=== PATIENT | male | born 1990 | race American Indian/Alaskan Native ===

== ENCOUNTER 2020-01-24 01:15 | Emergency (ER) | payer SELFPAY ==
[2020-01-24 01:29] VITALS: BP 121/79
--- NOTE | 2020-01-24 05:33 | Emergency Department Report ---
ED ENT HPI - General Chief complaint: Weakness Stated complaint: GENERAL WEAKNESS Time Seen by Provider: 01/24/20 05:28 Source: patient Mode of arrival: Ambulatory Limitations: No Limitations - History of Present Illness Initial comments: Patient is a 29-year-old -[place] male who presents for dental pain and sinus congestion , states to bad lower wisdom teeth. Pain is described as 6/10 aching throbbing. There is no throat or ear pain. There is noted rhinorrhea that is clear, there is no fever or chills, there is no nausea ,vomiting. There is no chest pain. Patient denies generalized weakness states symptoms are exacerbated by, activity, and p.o. intake with hot and cold sensitivity. , complaint: tooth pain Onset/Timin -: days(s) Location: tooth # (17&32) Severity: moderate Severity scale (0 -10): 5 Quality: aching Consistency: constant Improves with: none Worsens with: eating Context- Dental: history of dental caries, poor dental care Associated Symptoms: gum swelling, toothache, rhinorrhea. denies: pain with swallowing, sore throat, discharge from ear - Related Data Previous Rx's Medication Instructions Recorded Last Taken Type Amoxicillin [Trimox CAP] 500 mg PO Q8H 7 Days #21 capsule 01/24/20 Unknown Rx Chlorhexidine Mouthwash [Peridex] 15 ml MM BID #1 bottle 01/24/20 Unknown Rx traMADoL [Ultram] 50 mg PO Q6HR PRN #12 tablet 01/24/20 Unknown Rx ED Dental HPI - General Chief complaint: Weakness Stated complaint: GENERAL WEAKNESS Time Seen by Provider: 01/24/20 05:28 Source: patient Mode of arrival: Ambulatory Limitations: No Limitations - History of Present Illness MD complaint: tooth pain - Related Data Previous Rx's Medication Instructions Recorded Last Taken Type Amoxicillin [Trimox CAP] 500 mg PO Q8H 7 Days #21 capsule 01/24/20 Unknown Rx Chlorhexidine Mouthwash [Peridex] 15 ml MM BID #1 bottle 01/24/20 Unknown Rx traMADoL [Ultram] 50 mg PO Q6HR PRN #12 tablet 01/24/20 Unknown Rx ED Review of Systems ROS: Stated complaint: GENERAL WEAKNESS Other details as noted in HPI Constitutional: denies: chills, fever Eyes: denies: eye pain, eye discharge, vision change ENT: dental pain Respiratory: denies: cough, shortness of breath, wheezing Cardiovascular: denies: chest pain, palpitations Endocrine: no symptoms reported Gastrointestinal: denies: abdominal pain, nausea, diarrhea Genitourinary: denies: urgency, dysuria Musculoskeletal: denies: back pain, joint swelling, arthralgia Skin: denies: rash, lesions Neurological: denies: headache, weakness, paresthesias Psychiatric: denies: anxiety, depression Hematological/Lymphatic: denies: easy bleeding, easy bruising ED Past Medical Hx - Past Medical History Previous Medical History?: No - Surgical History Past Surgical History?: No - Social History Smoking Status: Former Smoker Substance Use Type: Alcohol - Medications Home Medications: Home Medications Medication Instructions Recorded Confirmed Last Taken Type Amoxicillin [Trimox CAP] 500 mg PO Q8H 7 Days #21 capsule 01/24/20 Unknown Rx Chlorhexidine Mouthwash [Peridex] 15 ml MM BID #1 bottle 01/24/20 Unknown Rx traMADoL [Ultram] 50 mg PO Q6HR PRN #12 tablet 01/24/20 Unknown Rx ED Physical Exam - General Limitations: No Limitations General appearance: alert, in no apparent distress - Head Head exam: Present: atraumatic, normocephalic - Eye Eye exam: Present: normal appearance, PERRL, EOMI Pupils: Present: normal accommodation - ENT ENT exam: Present: normal exam, mucous membranes moist, TM's normal bilaterally, normal external ear exam - Expanded ENT Exam Expanded Ear exam: Present: normal external inspection Mouth exam: Absent: trismus Teeth exam: Present: dental caries, dental tenderness # (17&32). Absent: gingival enlargement 1 - Dental Tenderness 2 - Dental Tenderness Throat exam: Positive: normal inspection. Negative: tonsillar erythema, tonsillomegaly, tonsillar exudate, R peritonsillar mass, L peritonsillar mass - Neck Neck exam: Present: normal inspection, full ROM. Absent: tenderness - Respiratory Respiratory exam: Present: normal lung sounds bilaterally. Absent: respiratory distress, wheezes, stridor, chest wall tenderness - Cardiovascular Cardiovascular Exam: Present: regular rate, normal rhythm, normal heart sounds. Absent: systolic murmur, diastolic murmur, rubs, gallop - GI/Abdominal GI/Abdominal exam: Present: soft, normal bowel sounds. Absent: distended, tenderness, bruit, hernia - Rectal Rectal exam: Present: deferred - Extremities Exam Extremities exam: Present: normal inspection, full ROM, normal capillary refill. Absent: tenderness - Back Exam Back exam: Present: normal inspection, full ROM. Absent: tenderness, CVA tenderness (R), CVA tenderness (L) - Neurological Exam Neurological exam: Present: alert, oriented X3, CN II-XII intact, normal gait - Psychiatric Psychiatric exam: Present: normal affect, normal mood - Skin Skin exam: Present: warm, dry, intact, normal color. Absent: rash ED Course Vital Signs 01/24/20 01:25 Temperature 98.4 F Pulse Rate 72 Respiratory 16 Rate Blood Pressure 121/79 O2 Sat by Pulse 99 Oximetry ED Medical Decision Making - Medical Decision Making This is straightforward dental caries there is no focal abscess mild gum e rythema, there is no trismus no ear pain, no sore throat. Patient is tolerating p.o. intake, plan antibiotics, Peridex, NSAIDs, follow-up with dentist, patient verbalized agreement and understanding with same. will be DC'd home in stable condition at this time. Critical care attestation.: If time is entered above; I have spent that time in minutes in the direct care of this critically ill patient, excluding procedure time. ED Disposition Clinical Impression: Infected dental carries Disposition: DC-01 TO HOME OR SELFCARE Is pt being admited?: No Does the pt Need Aspirin: No Condition: Stable Instructions: Dental Caries (ED) Prescriptions: Chlorhexidine Mouthwash [Peridex] 15 ml MM BID #1 bottle Amoxicillin [Trimox CAP] 500 mg PO Q8H 7 Days #21 capsule traMADoL [Ultram] 50 mg PO Q6HR PRN #12 tablet PRN Reason: Pain Referrals: SHAHRZAD CAMEJO MD [Primary Care Provider] - 3-5 Days [facility] [place] [Outside] - 3-5 Days Forms: Work/School Release Form(ED) Time of Disposition: 05:49
== END 2020-01-24 05:55 | disposition home or self-care (01) ==
LOC: ED 01:15
DX: K02.9 Dental caries, unspecified (principal)

== ENCOUNTER 2020-03-03 07:30 | Emergency (ER) | payer SELFPAY ==
[2020-03-03 07:35] VITALS: BP 144/81
--- NOTE | 2020-03-03 09:57 | Emergency Department Report ---
Chief Complaint: Dental/Oral Stated Complaint: TOOTH PAIN/RASH ON ARMS Time Seen by Provider: 03/03/20 09:33 - HPI History of Present Illness: Is a 29-year-old male with no prior medical history presents the ED today complaining of eczematous rash to his arm x1 week. Patient states that is not resolving. Patient also complaining of dental pain on the left lower bottom part of his teeth stating that he thinks is infection. He denies fever/chills/nausea vomiting/chest pain or shortness of breath. - ROS Review of Systems: As noted in HPI - Exam Vital Signs: Vital Signs 03/03/20 07:32 Temperature 98.6 F Pulse Rate 93 H Respiratory 17 Rate Blood Pressure 144/81 O2 Sat by Pulse 100 Oximetry Physical Exam: GENERAL: Alert and oriented x3, no apparent distress, Normal Gait, atraumatic. HEAD: Head is normocephalic and a-traumatic. EARS: symetrical, atraumatic, non tender, ear canal clear and moderate cerumen, tympanic membrance non inflamed. gross auditory nml bilaterally. MOUTH:Mouth is well hydrated and without lesions. Tonsils nonerythematous or swollen, Uvula midline, Tongue not elevated. Mucous membranes are moist. Pos terior pharynx clear, no exudate or lesions. Patent airways. No gingival edema or gingival bleeding noted. SKIN: Warm and dry, No ulceration or induration present. Multiple dry pinpoint rash noted on arms MSE screening note: Focused history and physical exam performed. Due to findings the following was ordered: ED Medical Decision Making - Medical Decision Making 29-year-old male who presents with left-sided dental pain secondary to odontogenic caries Pt has no evidence of acute impending airway compromise. At this point, patient will be discharged home on some antibiotics and pain trial, she will do well with an outpatient course of antibiotics. Follow up with the Dental Clinic as referred Vital signs are normal patient is in no acute distress. Pt had an effect uneventful ED stay ED Disposition for MSE Clinical Impression: Pain due to dental caries, Eczematous dermatitis Disposition: TO HOME OR SELFCARE Is pt being admited?: No Does the pt Need Aspirin: No Condition: Stable Instructions: Toothache (ED), Dental Caries (ED), Eczema (ED) Additional Instructions: Make sure to follow up with the primary care physician as discussed. Take all your medications as you've been prescribed. If you have any worsening symptoms or develop new symptoms please return to ED immediately. Prescriptions: Amoxicillin [Amoxicillin TAB] 875 mg PO BID #20 tablet Triamcinolone 0.1% [Kenalog 0.1% CREAM] 1 applic TP TID #2 tube Referrals: [facility] [Outside] - 3-5 Days [facility] [Outside] - 3-5 Days [facility] [Outside] - 3-5 Days Forms: Work/School Release Form(ED) Time of Disposition: 10:15
== END 2020-03-03 10:52 | disposition home or self-care (01) ==
LOC: ED 07:30
DX: K02.9 Dental caries, unspecified (principal); L30.9 Dermatitis, unspecified
CPT/HCPCS: 99282

== ENCOUNTER 2020-04-13 06:27 | Emergency (ER) | payer SELFPAY ==
--- NOTE | 2020-04-13 10:30 | Emergency Department Report ---
HPI - General Chief Complaint: Dental/Oral Time Seen by Provider: 04/13/20 10:25 - HPI HPI: Manjinder Banks The patient is a 30-year-old male present with a chief complaint of wisdom tooth pain. The patient states for the past 2 to 3 months he has had pain in his bilateral lower wisdom teeth. Patient states he went to see a dentist however cannot afford the [id number] cost. The patient states over the last week the pain is worsened. Patient denies history of fever. ED Past Medical Hx - Past Medical History Previous Medical History?: No - Surgical History Past Surgical History?: No - Family History Family history: no significant - Social History Smoking Status: Never Smoker Substance Use Type: None (Denies illicit drug use), Alcohol (Occasional) - Medications Home Medications: Home Medications Medication Instructions Recorded Confirmed Last Taken Type Amoxicillin [Trimox CAP] 500 mg PO Q8H 7 Days #21 capsule 01/24/20 Unknown Rx Chlorhexidine Mouthwash [Peridex] 15 ml MM BID #1 bottle 01/24/20 Unknown Rx traMADoL [Ultram] 50 mg PO Q6HR PRN #12 tablet 01/24/20 Unknown Rx Amoxicillin [Amoxicillin TAB] 875 mg PO BID #20 tablet 03/03/20 Unknown Rx Triamcinolone 0.1% [Kenalog 0.1% 1 applic TP TID #2 tube 03/03/20 Unknown Rx CREAM] Amoxicillin [Amoxicillin TAB] 875 mg PO BID #20 tablet 04/13/20 Unknown Rx Ibuprofen [Motrin 800 MG tab] 800 mg PO Q8HR PRN #20 tablet 04/13/20 Unknown Rx traMADoL [Ultram] 50 mg PO Q6HR PRN #14 tablet 04/13/20 Unknown Rx ED Review of Systems ROS: Stated complaint: TOOTH PAIN Other details as noted in HPI Constitutional: denies: fever ENT: dental pain Physical Exam - Physical Exam Physical Exam: GENERAL: The patient is well-developed well-nourished male sitting on stretcher not appearing to be in acute distress. [] HEENT: Normocephalic. Atraumatic. Extraocular motions are intact. Patient has moist mucous membranes. Lower right wisdom tooth black with caries. No gingival erythema or swelling appreciated. NECK: Supple. Trachea midline CHEST/LUNGS: There is no respiratory distress noted. SKIN: There is no diaphoresis. NEURO: The patient is awake, alert, and oriented. The patient is cooperative. The patient has normal speech MUSCULOSKELETAL: There is no evidence of acute injury. ED Medical Decision Making - Differential Diagnosis Dental pain, dental caries Critical care attestation.: If time is entered above; I have spent that time in minutes in the direct care of this critically ill patient, excluding procedure time. ED Disposition Clinical Impression: Pain, dental, Dental caries Disposition: TO HOME OR SELFCARE Is pt being admited?: No Does the pt Need Aspirin: No Condition: Stable Instructions: Dental Caries (ED), Toothache (ED) Additional Instructions: Return to the emergency department should you develop worsening symptoms, inability to tolerate food or liquids, high fever or any other concerns Prescriptions: Amoxicillin [Amoxicillin TAB] 875 mg PO BID #20 tablet Ibuprofen [Motrin 800 MG tab] 800 mg PO Q8HR PRN #20 tablet PRN Reason: Pain, Moderate (4-6) traMADoL [Ultram] 50 mg PO Q6HR PRN #14 tablet PRN Reason: Pain Referrals: PRIMARY CARE, [Primary Care Provider] - 3-5 Days [facility] [Outside] - [place] Time of Disposition: 10:30
== END 2020-04-13 10:38 | disposition home or self-care (01) ==
LOC: ED 06:27
DX: K02.9 Dental caries, unspecified (principal); Z79.2 Long term (current) use of antibiotics; Z79.899 Other long term (current) drug therapy
CPT/HCPCS: 99282

== ENCOUNTER 2020-10-11 01:53 | Emergency (ER) | payer SELFPAY ==
--- NOTE | 2020-10-11 03:42 | Emergency Department Report ---
ED Back Pain/Injury HPI - General Chief Complaint: Abdominal Pain Stated Complaint: LOWER BACK PAIN Time Seen by Provider: 10/11/20 03:37 Source: patient Limitations: No Limitations - History of Present Illness Initial Comments: 30-year-old -[place] male presents to the emergency room complaining of right side flank pain intermittently for the last 3 to 4 days. Patient states his pain when he has a BM. Patient states he does suffer from constipation and is having small Isaías hard stool. Patient denies any dysuria or discomfort with urination. Patient states that the pain is sharp and intermittent. He took ibuprofen last dose was yesterday. Denies any past medical history currently takes no medications on a daily basis and had a testicular torsion with surgery 4 years ago. Patient reports his discomfort is 8 out of 10. MD Complaint: back pain - Related Data Previous Rx's Medication Instructions Recorded Last Taken Type Amoxicillin [Trimox CAP] 500 mg PO Q8H 7 Days #21 capsule 01/24/20 Unknown Rx Chlorhexidine Mouthwash [Peridex] 15 ml MM BID #1 bottle 01/24/20 Unknown Rx traMADoL [Ultram] 50 mg PO Q6HR PRN #12 tablet 01/24/20 Unknown Rx Amoxicillin [Amoxicillin TAB] 875 mg PO BID #20 tablet 03/03/20 Unknown Rx Triamcinolone 0.1% [Kenalog 0.1% 1 applic TP TID #2 tube 03/03/20 Unknown Rx CREAM] Amoxicillin [Amoxicillin TAB] 875 mg PO BID #20 tablet 04/13/20 Unknown Rx Ibuprofen [Motrin 800 MG tab] 800 mg PO Q8HR PRN #20 tablet 04/13/20 Unknown Rx traMADoL [Ultram] 50 mg PO Q6HR PRN #14 tablet 04/13/20 Unknown Rx Allergies Allergy/AdvReac Type Severity Reaction Status Date / Time No Known Allergies Allergy Unverified 04/13/20 06:35 ED Review of Systems ROS: Stated complaint: LOWER BACK PAIN Other details as noted in HPI Comment: All other systems reviewed and negative ED Past Medical Hx - Past Medical History Previous Medical History?: No - Surgical History Past Surgical History?: Yes Additional Surgical History: Testicle surgery - Social History Smoking Status: Never Smoker - Medications Home Medications: Home Medications Medication Instructions Recorded Confirmed Last Taken Type Amoxicillin [Trimox CAP] 500 mg PO Q8H 7 Days #21 capsule 01/24/20 Unknown Rx Chlorhexidine Mouthwash [Peridex] 15 ml MM BID #1 bottle 01/24/20 Unknown Rx traMADoL [Ultram] 50 mg PO Q6HR PRN #12 tablet 01/24/20 Unknown Rx Amoxicillin [Amoxicillin TAB] 875 mg PO BID #20 tablet 03/03/20 Unknown Rx Triamcinolone 0.1% [Kenalog 0.1% 1 applic TP TID #2 tube 03/03/20 Unknown Rx CREAM] Amoxicillin [Amoxicillin TAB] 875 mg PO BID #20 tablet 04/13/20 Unknown Rx Ibuprofen [Motrin 800 MG tab] 800 mg PO Q8HR PRN #20 tablet 04/13/20 Unknown Rx traMADoL [Ultram] 50 mg PO Q6HR PRN #14 tablet 04/13/20 Unknown Rx ED Physical Exam - General Limitations: No Limitations General appearance: alert, in no apparent distress - Head Head exam: Present: atraumatic, normocephalic - Eye Eye exam: Present: normal appearance - ENT ENT exam: Present: mucous membranes moist - Neck Neck exam: Present: normal inspection, full ROM - Respiratory Respiratory exam: Present: normal lung sounds bilaterally. Absent: respiratory distress - Cardiovascular Cardiovascular Exam: Present: regular rate, normal rhythm. Absent: systolic murmur, diastolic murmur, rubs, gallop - GI/Abdominal GI/Abdominal exam: Present: soft. Absent: distended, tenderness, guarding - Back Exam Back exam: Present: normal inspection, full ROM. Absent: CVA tenderness (R), CVA tenderness (L), muscle spasm, paraspinal tenderness, vertebral tenderness - Neurological Exam Neurological exam: Present: alert, oriented X3, normal gait - Psychiatric Psychiatric exam: Present: normal affect, normal mood - Skin Skin exam: Present: warm, dry, intact, normal color. Absent: rash ED Course Vital Signs 10/11/20 03:19 Temperature 98.9 F Pulse Rate 67 Respiratory 20 Rate Blood Pressure 144/81 O2 Sat by Pulse 100 Oximetry ED Medical Decision Making - Medical Decision Making 30-year-old -[place] male presents to the emergency room complaining of right side flank pain intermittently for the last 3 to 4 days. Patient states his pain when he has a BM. Patient states he does suffer from constipation and is having small Isaías hard stool. Patient denies any dysuria or discomfort with urination. Patient states that the pain is sharp and intermittent. He took ibuprofen last dose was yesterday. Denies any past medical history currently takes no medications on a daily basis and had a testicular torsion with surgery 4 years ago. Patient reports his discomfort is 8 out of 10. Urinalysis is negative for any infection or hematuria. KUB is negative for any abnormalities. Critical care attestation.: If time is entered above; I have spent that time in minutes in the direct care of this critically ill patient, excluding procedure time. ED Disposition Clinical Impression: Flank pain Disposition: DC-01 TO HOME OR SELFCARE Is pt being admited?: No Does the pt Need Aspirin: No Condition: Stable Instructions: Flank Pain, Adult, [id number] Additional Instructions: X-ray neg urine negative. Recommend otc colace. increase fluid intake. Referrals: PRIMARY CAREMD [Primary Care Provider] - 3-5 Days [facility] [Provider Group] - 3-5 Days Forms: Work/School Release Form(ED)
--- NOTE | 2020-10-11 04:18 | XRay Report ---
. XR abdomen 1V ap INDICATION / CLINICAL INFORMATION: back pain and constipation. COMPARISON: None available. FINDINGS: TUBES / LINES: None. BOWEL GAS PATTERN: Nonobstructive bowel gas pattern. FREE AIR / EXTRALUMINAL GAS: None seen. ADDITIONAL FINDINGS: No significant additional findings. IMPRESSION: 1. No significant abnormality. Signer Name: Cb Diop MD Signed: 10/11/2020 4:14 AM Workstation Name: [id number]
[2020-10-11 04:45] LABS: Bilirubin,Urine NEG (Negative); Blood,Urine NEG (Negative); Color,Urine Yellow (Yellow); Mucus,Urine FEW /HPF; Protein,Urine <15 mg/dL mg/dL (Negative); Urobilinogen,Urine < 2.0 mg/dL (<2.0)
[2020-10-11 07:22] VITALS: BP 132/72
== END 2020-10-11 06:25 | disposition home or self-care (01) ==
LOC: ED 01:53
DX: R10.9 Unspecified abdominal pain (principal); Z79.899 Other long term (current) drug therapy; Z98.890 Other specified postprocedural states
CPT/HCPCS: 74018; 81001; 99283

== ENCOUNTER 2020-10-17 07:10 | Emergency (ER) | payer SELFPAY ==
[2020-10-17 07:29] VITALS: BP 149/89
[2020-10-17] MEDS ORDERED: ACETAMINOPHEN 500 MG TAB PO ONE (08:28)
[2020-10-17] MEDS ORDERED: PENICILLIN V POTASSIUM 250 MG TAB PO NR (08:28)
[2020-10-17] MEDS ORDERED: NAPROXEN 500 MG TAB PO NR (08:28)
--- NOTE | 2020-10-17 08:35 | Emergency Department Report ---
ED General Adult HPI - General Chief complaint: Dental/Oral Stated complaint: BROKEN TOOTH/TOOTHACHE Time Seen by Provider: 10/17/20 08:00 Source: patient Mode of arrival: Ambulatory Limitations: No Limitations - History of Present Illness Initial comments: 30-year-old immunocompetent male patient presents emergency department with complaints of a broken wisdom tooth on his left lower jaw occurring yesterday. Patient states pain is worse with eating, drinking, talking, and swallowing. He is not currently on antibiotics. He is not currently scheduled follow-up with oral surgery or dentist. No medications prior to arrival. Denies fever, chills, neck pain, sore throat, shortness of breath, hoarseness, headache, mental status changes, purulent drainage. Denies other complaints at this time. - Related Data Previous Rx's Medication Instructions Recorded Last Taken Type Amoxicillin [Trimox CAP] 500 mg PO Q8H 7 Days #21 capsule 01/24/20 Unknown Rx Chlorhexidine Mouthwash [Peridex] 15 ml MM BID #1 bottle 01/24/20 Unknown Rx traMADoL [Ultram] 50 mg PO Q6HR PRN #12 tablet 01/24/20 Unknown Rx Amoxicillin [Amoxicillin TAB] 875 mg PO BID #20 tablet 03/03/20 Unknown Rx Triamcinolone 0.1% [Kenalog 0.1% 1 applic TP TID #2 tube 03/03/20 Unknown Rx CREAM] Amoxicillin [Amoxicillin TAB] 875 mg PO BID #20 tablet 04/13/20 Unknown Rx Ibuprofen [Motrin 800 MG tab] 800 mg PO Q8HR PRN #20 tablet 04/13/20 Unknown Rx traMADoL [Ultram] 50 mg PO Q6HR PRN #14 tablet 04/13/20 Unknown Rx Naproxen 500 mg PO BID #20 tablet 10/17/20 Unknown Rx Nystas/Diphen/Xyl Visc/Mylanta 30 ml MM Q4H PRN #1 bottle 10/17/20 Unknown Rx [Magic Mouthwash] Penicillin Vk [Veetids TAB] 500 mg PO QID 7 Days tablet 10/17/20 Unknown Rx Allergies Allergy/AdvReac Type Severity Reaction Status Date / Time No Known Allergies Allergy Verified 10/17/20 07:26 ED Review of Systems ROS: Stated complaint: BROKEN TOOTH/TOOTHACHE Other details as noted in HPI Other: GENERAL: Negative for fever. ENT: Positive for dental pain. CARDIOVASCULAR: Negative for chest pain. PULMONARY: Negative for shortness of breath. GASTROINTESTINAL: Negative for abdominal pain. MUSCULOSKELETAL: Negative for back pain. NEUROLOGICAL: Negative for headache. INTEGUMENTARY: Negative for rash. ED Past Medical Hx - Past Medical History Previous Medical History?: No - Surgical History Past Surgical History?: No Additional Surgical History: Testicle surgery - Social History Smoking Status: Never Smoker Substance Use Type: None - Medications Home Medications: Home Medications Medication Instructions Recorded Confirmed Last Taken Type Amoxicillin [Trimox CAP] 500 mg PO Q8H 7 Days #21 capsule 01/24/20 Unknown Rx Chlorhexidine Mouthwash [Peridex] 15 ml MM BID #1 bottle 01/24/20 Unknown Rx traMADoL [Ultram] 50 mg PO Q6HR PRN #12 tablet 01/24/20 Unknown Rx Amoxicillin [Amoxicillin TAB] 875 mg PO BID #20 tablet 03/03/20 Unknown Rx Triamcinolone 0.1% [Kenalog 0.1% 1 applic TP TID #2 tube 03/03/20 Unknown Rx CREAM] Amoxicillin [Amoxicillin TAB] 875 mg PO BID #20 tablet 04/13/20 Unknown Rx Ibuprofen [Motrin 800 MG tab] 800 mg PO Q8HR PRN #20 tablet 04/13/20 Unknown Rx traMADoL [Ultram] 50 mg PO Q6HR PRN #14 tablet 04/13/20 Unknown Rx Naproxen 500 mg PO BID #20 tablet 10/17/20 Unknown Rx Nystas/Diphen/Xyl Visc/Mylanta 30 ml MM Q4H PRN #1 bottle 10/17/20 Unknown Rx [Magic Mouthwash] Penicillin Vk [Veetids TAB] 500 mg PO QID 7 Days tablet 10/17/20 Unknown Rx ED Physical Exam - General Limitations: No Limitations - Other Other exam information: General: Awake, appropriately interactive, no acute distress. Dental: Oral mucosa is moist. The gingiva appear normal. No fluctuance or evidence of periapical abscess. Sublingual, submental, and submandibular spaces all soft, without edema. No evidence for maxillary or buccal space abscess. No trismus. Patient is speaking in full sentences and handling secretions without difficulty. Left lower wisdom tooth appears decayed down to the gum line with overlying tenderness. Neck: Supple. Full range of motion intact. Cardiovascular: Normal peripheral perfusion. Pulmonary: No respiratory distress. Patient is speaking normally without use of accessory muscles. Airway is patent. Skin: No apparent rashes or lesions. Neurological: No facial asymmetry. Speech is clear. Follows commands. Patient is alert and oriented. Musculoskeletal: Moves all four extremities spontaneously with normal range of motion. Psych: Cooperative. Appropriate mood and affect. ED Course Vital Signs 10/17/20 10/17/20 07:26 09:06 Temperature 98.4 F Pulse Rate 80 Respiratory 18 18 Rate Blood Pressure 149/89 O2 Sat by Pulse 100 Oximetry ED Medical Decision Making - Medical Decision Making Differential diagnosis including but not limited to: dental caries, dental abscess, dental fracture, Hao's angina, necrotizing gingivitis Patient presents emergency department with complaints of worsening pain along his left lower wisdom tooth. He is afebrile. Vital signs are stable. Airway is patent. No respiratory distress. He is handling secretions and tolerating p.o. without difficulty. No clinical indication for further work-up on an emergent basis at this time. History and exam findings consistent with severe dental caries. Patient will be discharged home with appropriate analgesics and antibiotics. First dose given in the emergency department. Emphasized the importance of outpatient follow-up with dentist/oral surgeon for definitive m anagement. Patient expressed understanding and is agreeable to plan of care. Strict return precautions provided. Repeat exam is unremarkable and benign. History, exam, diagnostic testing, and current condition do not suggest worrisome pathology to warrant further testing, continued ED treatment, admission, or surgical evaluation at this point. Given the low probability of a significant medical illness, it would be more likely to result in harm than benefit to perform further testing at this stage. Discussed findings, presumptive diagnosis, need for follow-up and specific signs/symptoms that should prompt immediate return to the emergency department. Instructions were explained in detail to the patient in addition to giving written discharge information. Patient expressed understanding and was given the opportunity to ask questions, all of which were satisfactorily answered prior to discharge home. Critical care attestation.: If time is entered above; I have spent that time in minutes in the direct care of this critically ill patient, excluding procedure time. ED Disposition Clinical Impression: Pain, dental Disposition: [id number] TO HOME OR SELFCARE Is pt being admited?: No Does the pt Need Aspirin: No Condition: Stable Instructions: Dental Extraction, [id number] Additional Instructions: Take Tylenol every 4 hours as needed for pain. Take Naprosyn twice daily with food as needed for pain. Take Penicillin with food as directed. Use Magic Mouthwash for pain as needed. Avoid extremely hot/extremely cold foods and fluids that may worsen your pain. You may consider applying dental wax to the affected tooth for added pain relief. You must follow-up with dentist and/or oral surgeon this week. Call tomorrow to schedule an appointment. See referral information attached. Return to the emergency department immediately for new or worsening symptoms. Specifically, return to the emergency department immediately for fever, worsening pain, increased swelling, difficulty breathing, difficulty swallowing, inability to tolerate fluids by mouth, or any other concerns. Prescriptions: Nystas/Diphen/Xyl Visc/Mylanta [Magic Mouthwash] 30 ml MM Q4H PRN #1 bottle PRN Reason: Pain , Severe (7-10) Naproxen 500 mg PO BID #20 tablet Penicillin Vk [Veetids TAB] 500 mg PO QID 7 Days tablet Referrals: [facility] [Other] - 3-5 Days Time of Disposition: 08:37
== END 2020-10-17 09:08 | disposition home or self-care (01) ==
LOC: ED 07:10
DX: K08.89 Other specified disorders of teeth and supporting structures (principal); Z79.899 Other long term (current) drug therapy; Z98.890 Other specified postprocedural states
CPT/HCPCS: 99282